=== PATIENT | male | born 1970 | race Caucasian/White ===

== ENCOUNTER 2019-03-23 13:06 | Emergency (ER) | payer SELFPAY ==
[~2019-03-23] VITALS: Ht 165.1 cm; Wt 90.7 kg
--- NOTE | 2019-03-23 13:08 | NUR ---
pt here with " mom". pt alert gcs 15. in wanda pt same time. approx 30-45 min. ago pt c/o sudden onset and is currently moaning and groaning in paion left chest. pain rating 8-9. pt denies recent injury, pushing, pulling , etc. pt denies abd pain. 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 pt also c/o dyspnea and no acute sighns of dyspnea noted. lungs insp wheezes all oneill. pt is a smoker. no cyanosis or duskiness or accessory muscle use noted. tele applied by nd shows sr 76. someone doing iv and labs and ekg. abd appears distended neg pain with palpation and neg pulsating massess noted. pt then had n/v x 1 in er undigested food. done wanda pt 1318.
[2019-03-23] MEDS ORDERED: ONDANSETRON 4 MG/2 ML (SDV) Z0FRAN ONE (13:11)
--- NOTE | 2019-03-23 13:12 | NUR ---
ekg by other staff and to dr by other staff
[2019-03-23] MEDS ORDERED: ASPIRIN 81 MG CHEW (CHILDREN'S ASA) PO ONE (13:15)
[2019-03-23] MEDS ORDERED: KETOROLAC 30 MG/ML VIAL IVP STA (13:17)
[2019-03-23] MEDS ORDERED: LACTATED RINGERS 1,000 ML IV STA (13:17)
[2019-03-23 13:25] LABS: BASOPHILS % (AUTO) 1 % (0-10); EOSINOPHILS # (AUTO) 0.6 10^3/uL (0.0-0.3); EOSINOPHILS % (AUTO) 8 % (0-10); HEMATOCRIT 49 % (40-54); HEMOGLOBIN 16.2 G/DL (13.3-17.7); LYMPHOCYTES % (AUTO) 29 % (12-44); MEAN CORPUSCULAR HEMOGLOBIN 32 PG (25-34); MEAN CORPUSCULAR HGB CONC 33 G/DL (32-36); MEAN CORPUSCULAR VOLUME 97 FL (80-99); MEAN PLATELET VOLUME 10.1 FL (7.4-10.4); MONOCYTES # (AUTO) 0.7 X 10^3 (0.0-1.0); MONOCYTES % (AUTO) 10 % (0-12); NEUTROPHILS # (AUTO) 3.7 X 10^3 (1.8-7.8); NEUTROPHILS % (AUTO) 53 % (42-75); PLATELET COUNT 186 10^3/uL (130-400); RED CELL DISTRIBUTION WIDTH 13.1 % (10.0-14.5); WHITE BLOOD COUNT 6.9 10^3/uL (4.3-11.0)
[2019-03-23] MEDS ORDERED: ONDANSETRON 4 MG/2 ML (SDV) Z0FRAN IVP ONE (13:30)
[2019-03-23] MEDS ORDERED: morphine INJ 10 MG/ML 1ML (SYR OR VIAL) IVP ONE (13:30)
--- NOTE | 2019-03-23 13:33 | ED Chest Pain ---
General Stated Complaint: CP Source: patient, family Exam Limitations: no limitations History of Present Illness Date Seen by Provider: Mar 23, 2019 Time Seen by Provider: 13:06 Initial Comments Here with onset of chest pain within the last hour. States it's left-sided and quite severe. Worse with deep breath and movement. Better with sitting still. Reports that it's sharp and stabbing. Goes into his back. Denies sweating but does have nausea and vomiting. Never had anything like this before. Does not see the doctor. Sibling had acute HI and at age 42 from heart attack. Patient does work as a tire and automotive parts coordinator. Timing/Duration: 1/2 hour Severity/Quality: severe Location: other (left chest wall) Radiation: back Prior CP/Workup: no prior chest pain, no prior cardiac workup Modifying Factors: worse with movement; improves with rest ASA po PATIENT SERVICES TECHNICIAN: No NTG SL PATIENT SERVICES TECHNICIAN: No Associated Symptoms: No abdominal pain; back pain; No diaphoresis, No dizziness, No fever/chills; nausea/vomiting, shortness of breath; No weakness Allergies and Home Medications Allergies Coded Allergies: No Known Drug Allergies (Unverified , 03/23/19) Patient Home Medication List Home Medication List Reviewed: Yes Review of Systems Review of Systems Constitutional: see HPI EENTM: No Symptoms Reported Respiratory: See HPI; Denies Cough; Wheezing Cardiovascular: Chest Pain; Denies Palpitations Gastrointestinal: See HPI Genitourinary: No Symptoms Reported Musculoskeletal: see HPI, back pain; No joint pain; muscle pain Skin: no symptoms reported All Other Systems Reviewed Negative Unless Noted: Yes Past Djyqlxo-Hdydzy-Vcxoio Hx Past Med/Social Hx: Reviewed Nursing Past Med/Soc Hx Patient Social History Alcohol Use: Denies Use Recreational Drug Use: No Smoking Status: Never a Smoker Recent Foreign Travel: No Contact w/Someone Who Travel: No Past Medical History Surgeries: No Respiratory: No Cardiac: No Neurological: No Genitourinary: No Gastrointestinal: No Musculoskeletal: No Endocrine: No HEENT: No Did You Recieve Any Treatments: No Family Medical History CAD Over 55 Years Old Physical Exam Vital Signs Vital Signs - First Documented 03/23/19 13:08 Temp 96.9 Pulse 72 Resp 16 B/P (MAP) 143/71 (95) Pulse Ox 100 O2 Delivery Room Air Capillary Refill : Height, Weight, BMI Height: '" Weight: lbs. oz. kg; BMI Method: General Appearance: WD/WN, Moderate Distress, Obese HEENT: PERRL/EOMI, Pharynx Normal Neck: Non Tender, Supple Respiratory: Lungs Clear, Normal Breath Sounds, Other (pain is not reproducible) Cardiovascular: Regular Rate, Rhythm, No Murmur Gastrointestinal: Non Tender, Soft Extremity: Normal Range of Motion, Non Tender Neurologic/Psychiatric: Alert, Oriented x3 Skin: Normal Color, Warm/Dry Progress/Results/Core Measures Results/Orders Lab Results Laboratory Tests Test 03/23/19 13:19 03/23/19 15:23 Range/Units White Blood Count 6.9 4.3-11.0 10^3/uL Red Blood Count 5.06 4.35-5.85 10^6/uL Hemoglobin 16.2 13.3-17.7 G/DL Hematocrit 49 40-54 % Mean Corpuscular Volume 97 80-99 FL Mean Corpuscular Hemoglobin 32 25-34 PG Mean Corpuscular Hemoglobin Concent 33 32-36 G/DL Red Cell Distribution Width 13.1 10.0-14.5 % Platelet Count 186 130-400 10^3/uL Mean Platelet Volume 10.1 7.4-10.4 FL Neutrophils (%) (Auto) 53 42-75 % Lymphocytes (%) (Auto) 29 12-44 % Monocytes (%) (Auto) 10 0-12 % Eosinophils (%) (Auto) 8 0-10 % Basophils (%) (Auto) 1 0-10 % Neutrophils # (Auto) 3.7 1.8-7.8 X 10^3 Lymphocytes # (Auto) 2.0 1.0-4.0 X 10^3 Monocytes # (Auto) 0.7 0.0-1.0 X 10^3 Eosinophils # (Auto) 0.6 H 0.0-0.3 10^3/uL Basophils # (Auto) 0.0 0.0-0.1 10^3/uL Prothrombin Time 12.7 12.2-14.7 SEC INR Comment 0.9 0.8-1.4 Activated Partial Thromboplast Time 32 24-35 SEC D-Dimer 0.33 0.00-0.49 UG/ML Sodium Level 141 135-145 MMOL/L Potassium Level 4.4 3.6-5.0 MMOL/L Chloride Level 106 98-107 MMOL/L Carbon Dioxide Level 28 21-32 MMOL/L Anion Gap 7 5-14 MMOL/L Blood Urea Nitrogen 15 7-18 MG/DL Creatinine 0.89 0.60-1.30 MG/DL Estimat Glomerular Filtration Rate > 60 BUN/Creatinine Ratio 17 Glucose Level 121 H 70-105 MG/DL Calcium Level 9.2 8.5-10.1 MG/DL Corrected Calcium 9.2 8.5-10.1 MG/DL Magnesium Level 2.0 1.8-2.4 MG/DL Total Bilirubin 0.2 0.1-1.0 MG/DL Aspartate Amino Transf (AST/SGOT) 9 5-34 U/L Alanine Aminotransferase (ALT/SGPT) 11 0-55 U/L Alkaline Phosphatase 57 40-136 U/L Myoglobin 21.8 10.0-92.0 NG/ML Troponin I < 0.028 < 0.028 <0.028 NG/ML Total Protein 7.0 6.4-8.2 GM/DL Albumin 4.0 3.2-4.5 GM/DL Lipase 28 8-78 U/L My Orders Orders - DIETER FINCH MD Cbc With Automated Diff (03/23/19 13:09) Magnesium (03/23/19 13:09) Chest 1 View, Ap/Pa Only (03/23/19 13:09) Ekg Tracing (03/23/19 13:09) Cardiac Profile 1 (03/23/19 13:09) Comprehensive Metabolic Panel (03/23/19 13:09) Myoglobin Serum (03/23/19 13:09) Protime With Inr (03/23/19 13:09) Partial Thromboplastin Time (03/23/19 13:09) O2 (03/23/19 13:09) Monitor-Rhythm Ecg Trace Only (03/23/19 13:09) Lipid Panel (03/24/19 06:00) Ed Iv/Invasive Line Start (03/23/19 13:09) Fibrin Degradation Products (03/23/19 13:09) Aspirin Chewable Tablet (Baby Aspirin Ch (03/23/19 13:15) Lipase (03/23/19 13:12) Ketorolac Injection (Toradol Injection) (03/23/19 13:17) Morphine Injection (Morphine Injection (03/23/19 13:30) Ondansetron Injection (Zofran Injectio (03/23/19 13:30) Lactated Ringers (Lr 1000 Ml Iv Solution (03/23/19 13:17) Ondansetron Injection (Zofran Injectio (03/23/19 13:11) Troponin I (03/23/19 15:27) Medications Given in ED Current Medications Medications Dose Ordered Sig/Sienna Route Start Time Stop Time Status Last Admin Dose Admin Aspirin 324 mg ONCE ONCE PO 03/23/19 13:15 03/23/19 13:16 DC 03/23/19 13:24 324 MG Morphine Sulfate 4 mg ONCE ONCE IVP 03/23/19 13:30 03/23/19 13:31 DC 03/23/19 13:39 4 MG Ondansetron HCl 8 mg ONCE ONCE IVP 03/23/19 13:30 03/23/19 13:31 DC 03/23/19 13:20 8 MG Vital Signs/I&O 03/23/19 13:08 Temp 96.9 Pulse 72 Resp 16 B/P (MAP) 143/71 (95) Pulse Ox 100 O2 Delivery Room Air Progress Progress Note : Progress Note Seen and evaluated. IV, labs, EKG and chest x-ray ordered. Aspirin 324 mg by mouth ordered. Toradol 30 mg IV and morphine 4 mg IV ordered for pain. Monitor patient. Pain resolved after this. Initial set of labs negative. We will repeat labs at 1520 for troponin. Monitor patient. 1615: Patient has remained without pain throughout ER visit actually initially I will get pain control. Troponin is remained negative. No ectopy on the monitor. Blood pressure 126/89 with heart rate is 74 and O2 sat 97% on room air. No indication of cardiac event or lung abnormality currently. I did discuss at length with the patient and family regarding the patient's need for follow-up and primary care. 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 Discharged home with return precautions. Patient verbalize understanding instructions and agreement with plan. Initial ECG Impression Date: Mar 23, 2019 Initial ECG Impression Time: 13:09 Initial ECG Rate: 73 Initial ECG Rhythm: Normal Sinus Comment Sinus rhythm with normal axis. No evidence of ST elevation HI. No previous available for comparison. By me. Diagnostic Imaging Diagonstic Imaging: Xray Plain Films/CT/US/NM/MRI: chest Comments [facility], [facility]. [place], [place] NAME: DENNY GALVAN [employer] REC#: [id number] PT STATUS: REG ER : 1970 PHYSICIAN: DIETER FINCH MD ADMIT DATE: 03/23/19/ER Draft Date of Exam:03/23/19 CHEST 1 VIEW, AP/PA ONLY INDICATION: Chest pain. TECHNIQUE: Single view chest 2:35 PM. CORRELATION STUDY: None FINDINGS: Given technique, heart size, mediastinum and vasculature overall within normal limits. Lungs appearing generally clear. Examination is compromised following technical and overlying soft tissue attenuation. IMPRESSION: 1. Negative for acute abnormality of the chest on portable chest radiograph. Dictated on workstation # [id number] Dict: 03/23/19 1442 Trans: 03/23/19 1447 [facility] [id number] Interpreted by: JESIKA BALTAZAR DO Electronically signed by: Departure Impression Primary Impression: Chest pain Qualified Codes: R07.9 - Chest pain, unspecified Disposition: 01 HOME, SELF-CARE Condition: Improved Departure-Patient Inst. Decision time for Depature: 16:21 Referrals: DENNY SALAZAR M RIZWAN MD NO,LOCAL PHYSICIAN (PCP) Primary Care Physician Patient Instructions: Chest Pain (DC) Add. Discharge Instructions: It is very important that you follow up with your primary care doctor. You have seen Dr. Salazar in the past and can certainly see him again. Make appointment with railroad car cleaning supervisor as discussed as well in one week. Return for worse pain, fever, vomiting, weakness, breathing problems or other concerns as needed. DIETER FINCH MD Mar 23, 2019 13:33
[2019-03-23 13:37] LABS: INR 0.9 (0.8-1.4); PROTHROMBIN TIME PATIENT 12.7 SEC (12.2-14.7)
[2019-03-23 13:44] LABS: ALANINE AMINOTRANSFERASE 11 U/L (0-55); ALKALINE PHOSPHATASE 57 U/L (40-136); BILIRUBIN,TOTAL 0.2 MG/DL (0.1-1.0); BUN/CREATININE RATIO 17; CALCIUM 9.2 MG/DL (8.5-10.1); CARBON DIOXIDE 28 MMOL/L (21-32); CHLORIDE 106 MMOL/L (98-107); CREATININE SERUM 0.89 MG/DL (0.60-1.30); GFR ESTIMATED > 60; GLUCOSE 121 MG/DL (70-105); POTASSIUM 4.4 MMOL/L (3.6-5.0); SODIUM 141 MMOL/L (135-145)
--- NOTE | 2019-03-23 14:15 | NUR ---
pt remains alert gcs 15. mom remains in the room. pain rating " little" " eased up alot". denies dyspnea and no acute sighns of dyspnea noted. denies nausea and no v/d in er except initial vomiting x 1 charted already. tele shows sr 74. bp machine is 117/74 ausc hr 76 reg ausc resp 16 normal recheck temp 95.9 p ox r/a is 96.
--- NOTE | 2019-03-23 14:47 | Diagnostic Imaging Report ---
INDICATION: Chest pain. TECHNIQUE: Single view chest 2:35 PM. CORRELATION STUDY: None FINDINGS: Given technique, heart size, mediastinum and vasculature overall within normal limits. Lungs appearing generally clear. Examination is compromised following technical and overlying soft tissue attenuation. IMPRESSION: 1. Negative for acute abnormality of the chest on portable chest radiograph. Dictated by: Dictated on workstation # [id number]
--- NOTE | 2019-03-23 15:23 | NUR ---
pt remains alert gcs 15. mom remains in the room. pt denies pain. denies dyspnea and no acute sighns of dyspnea noted. denies nausea and no more vomiting noted in er except initial 1. no diarrhea in er visit. bolus completed. tele shows sr 76. bp machine is 129/82 ausc hr 68 reg ausc resp 16 normal recheck temp 96.8 p ox r/a is 99. 2nd trop from iv site by me and to lab by me.
[2019-03-23 16:29] VITALS: BP 126/89
--- NOTE | 2019-03-23 16:38 | NUR ---
someone else d/cd pt i am merely doing the computer end of it.
--- NOTE | 2019-03-23 16:49 | NUR ---
i guess they did the d/c too.
== END 2019-03-23 16:29 | disposition home or self-care (01) ==
LOC: EDUNIT# 13:06 → ER 13:07
DX: R07.89 Other chest pain (principal)
CPT/HCPCS: 36415; 71045; 80053; 83690; 83735; 83874; 84484; 85025; 85379; 85610; 85730; 93005; 93041; 96374; 96375